=== PATIENT | female | born 1965 | race Caucasian/White ===

== ENCOUNTER 2016-10-11 15:58 | Emergency (ER) | payer OTHER, BC ==
--- NOTE | 2016-10-11 16:25 | EDM.PDOC ---
ED HPI HEADACHE COMPLAINT - General Chief Complaint: Headache Stated Complaint: HEAD PAIN FROM FALL IN AUGUST Time Seen by Provider: 10/11/16 16:12 Source of Information: Reports: Patient, Family (spouse), RN notes reviewed - History of Present Illness INITIAL COMMENTS - FREE TEXT/NARRATIVE: 51-year-old female returns to ED this afternoon with concerns about continued headache status post fall about 7 weeks ago. She was evaluated here in the ED shortly after her fall and did have x-rays of her knee and CT of her head. The CT was normal. She was then evaluated by myself on return visit about 10 days later the end of August. Refer to those records for details. At that time she was diagnosed with postconcussive syndrome. Neuro exam did not indicate need for repeat CT at that time. She was given some time off of work and symptoms of headache, brain fog and dizziness did improve. 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 SHe states she will have days where she has no headache and then other times where she will be awakened from sleep with frontal and right-sided headache. She also has had right-sided neck discomfort but that is gradually improved with therapy. She's had occasional shooting pains of the left forehead which also continued to persist. She states she has occasional very short-term memory lapses such as remembering names of strangers that never used to be a problem for her. SHe also catches herself misspelling and repeating words when preparing documents. she has not been having any recent nausea or vomiting. No focal weakness. She Does often feel dizzy when standing and at times "off balance - Related Data Allergies/ADRs: Allergies Allergy/AdvReac Type Severity Reaction Status Date / Time hydrocodone [From Vicodin] AdvReac Nausea Verified 10/11/16 16:10 propoxyphene AdvReac Nausea Verified 10/11/16 16:10 [From Darvocet-N 100] Home Meds: Home Meds Acyclovir 400 mg PO DAILY 08/20/16 [History] Past Medical History - Past Health History Medical/Surgical History: Denies Medical/Surgical History Musculoskeletal History: Reports: Other (see below) Other Musculoskeletal History: L5-S1 injury from and accident but h as healed up - right shoulder injury also;no surgical procedures Psychiatric History: Reports: None Social & Family History - Family History Family Medical History: Noncontributory - Tobacco Use Smoking Status *Q: Never Smoker Month Tobacco Last Used: 1995 Second Hand Smoke Exposure: No - Caffeine Use Caffeine Use: Reports: Coffee - Recreational Drug Use Recreational Drug Use: No ED ROS GENERAL - Review of Systems Review Of Systems: See Below Constitutional: Denies: fever, chills, diaphoresis HEENT: Denies: Ear pain, Sinus problem, Throat pain, Vertigo Respiratory: Denies: shortness of breath, pleuritic chest pain Cardiovascular: Denies: Chest pain Endocrine: Reports: fatigue GI/Abdominal: Denies: Abdominal pain, Nausea, Vomiting Musculoskeletal: Reports: neck pain (occasional right-sided). Denies: shoulder pain, arm pain, back pain Skin: Reports: no symptoms Neurological: Reports: dizziness, headache, difficulty walking (occasional dizziness and balance difficulty). Denies: numbness, tingling, weakness, change in speech - Physical Exam Exam: See Below General Appearance: alert, no apparent distress Eye Exam: bilateral eye: EOMI, PERRL Ears: normal external exam Nose: normal inspection Throat/Mouth: Normal inspection, Normal oropharynx Head Exam: atraumatic, other (very small area of mild swelling right forehead with very mild tenderness) Neck: supple, full range of motion Respiratory/Chest: no respiratory distress, lungs clear, normal breath sounds Cardiovascular: regular rate, rhythm Neuro Exam (Abbreviated): alert, oriented, no motor/sensory deficits, other ( finger to nose testing normal) Back Exam: normal inspection Extremities: normal inspection, normal range of motion Psychiatric: normal affect, normal mood Skin Exam: Warm, Dry, Normal color Course - Vital Signs Last Recorded V/S: Last Vital Signs Temp 96.9 F 10/11/16 16:05 Pulse 68 10/11/16 16:05 Resp 18 10/11/16 16:05 BP 164/98 H 10/11/16 16:05 Pulse Ox 100 10/11/16 16:05 - Re-Assessments/Exams Free Text/Narrative Re-Assessment/Exam: 10/11/16 18:01 symptoms are improved from prior ED visits of well over one month ago. However with her persistent symptoms as documented have written order for MRI of head to be done early this next week. Patient and her are comfortable with that plan. Discharge instructions as documented Departure - Departure Time of Disposition: 16:56 Disposition: Home, Self-Care 01 Condition: fair Clinical Impression: Postconcussive syndrome, Headache Instructions: General Headache Without Cause, Post-Concussion Syndrome, Easy-to -Read Referrals: PCP,None [Primary Care Provider] - Forms: ED Department Discharge Additional Instructions: Advil or ibuprofen 400 mg in the morning, mid afternoon and 600 mg towards bedtime as discussed, be sure to take that with food so that does not upset your stomach, Tylenol in between doses if needed for relief of discomfort not entirely relieved by ibuprofen, MRI to be done early this next week, I suggest following up with Dr. Miladys Warner after you have had the MRI completed for test results, further evaluation and treatment as needed. If you do have the MRI done Thursday or Thursday you may call the ED at [phone] and we can check for a Radiologist report, asked to speak to myself as I will be working those evenings. Call anytime after 8 PM. continue with physical therapy as needed. Return to ED as needed.
== END 2016-10-11 17:15 | disposition home or self-care (01) ==
LOC: JD.ED 15:58
CPT/HCPCS: 99283; 99284